=== PATIENT | male | born 1990 | race African-American/Black ===

== ENCOUNTER 2019-11-28 06:22 | Emergency (ER) | payer MEDICAID ==
[~2019-11-28] VITALS: Ht 165.1 cm; Wt 57.0 kg
[2019-11-28] MEDS: MAGNESIUM/ALUMINUM HYDROXIDE/SIMETHICONE 30ML UDC PO STA (07:00)
[2019-11-28] MEDS: VISCOUS LIDOCAINE 2% 15 ML UDC PO STA (07:00)
[2019-11-28] MEDS: DICYCLOMINE 10 MG/5 ML ORAL SYR PO STA (07:00)
[2019-11-28] MEDS: ACETAMINOPHEN 325MG TABLET PO STA (07:00)
[2019-11-28] MEDS: KETOROLAC 60MG/2ML VIAL IM ONE (07:40)
[2019-11-28 07:41] VITALS: BP 122/89
== END 2019-11-28 07:42 | disposition home or self-care (01) ==
LOC: ER 06:22
DX: M54.2 Cervicalgia (principal); J02.9 Acute pharyngitis, unspecified; R07.89 Other chest pain; K21.9 Gastro-esophageal reflux disease without esophagitis
CPT/HCPCS: 71045; 93005; 96372; 99284; J1885

== ENCOUNTER 2019-12-01 03:14 | Emergency (ER) | payer MEDICAID ==
[~2019-12-01] VITALS: Ht 170.2 cm; Wt 73.0 kg
[2019-12-01] MEDS ORDERED: ACETAMINOPHEN 325MG TABLET PO STA (07:19)
[2019-12-01 08:38] LABS: BASOPHILS % 0.7 % (0.0-2.0); HEMATOCRIT. 49.3 % (42.0-52.0); HEMOGLOBIN. 16.6 g/dL (14.0-18.0); LYMPHOCYTES % 30.2 % (20.0-50.0); MEAN CORPUSCULAR HEMOGLOBIN 29.2 pg (28.0-32.0); MEAN CORPUSCULAR VOLUME 86.6 fL (80.0-94.0); MEAN PLATELET VOLUME 10.5 fl (7.4-10.4); MONOCYTES % 5.4 % (2.0-8.0); NEUTROPHILS % 61.7 % (40.0-76.0); PLATELET 154 x1000/uL (130-400); RED BLOOD CELL COUNT 5.69 mill/uL (4.7-6.1); RED CELL DISTRIBUTION WIDTH 13.6 % (11.6-14.6)
[2019-12-01 08:46] LABS: CHLORIDE 105 mEq/L (98-107)
[2019-12-01 08:48] LABS: INR 1.1; PROTHROMBIN TIME 11.5 sec (9.6-11.0)
[2019-12-01] MEDS ORDERED: IOHEXOL-300 100 ML BOTTLE ONE (09:30)
[2019-12-01] MEDS ORDERED: KETOROLAC 60MG/2ML VIAL IM ONE (10:00)
[2019-12-01 10:41] VITALS: BP 115/68
== END 2019-12-01 10:41 | disposition home or self-care (01) ==
LOC: ER 03:14
DX: J03.90 Acute tonsillitis, unspecified (principal)
CPT/HCPCS: 36415; 70491; 80053; 83605; 85025; 85610; 87040; 96372; 99284; J1885; Q9967

== ENCOUNTER 2019-12-03 14:01 | Emergency (ER) | payer MEDICAID ==
[~2019-12-03] VITALS: Ht 175.3 cm; Wt 69.0 kg
[2019-12-03] MEDS ORDERED: MAGNESIUM/ALUMINUM HYDROXIDE/SIMETHICONE 30ML UDC PO ONE (15:30)
[2019-12-03] MEDS ORDERED: IBUPROFEN 400MG TABLET PO ONE (15:30)
[2019-12-03 16:26] LABS: BASOPHILS % 0.7 % (0.0-2.0); EOSINOPHILS % 0.3 % (0.0-5.0); HEMATOCRIT. 48.1 % (42.0-52.0); HEMOGLOBIN. 16.3 g/dL (14.0-18.0); LYMPHOCYTES % 17.5 % (20.0-50.0); MEAN CORPUSCULAR HEMOGLOBIN 28.9 pg (28.0-32.0); MEAN CORPUSCULAR VOLUME 85.2 fL (80.0-94.0); MEAN PLATELET VOLUME 10.4 fl (7.4-10.4); MONOCYTES % 5.6 % (2.0-8.0); NEUTROPHILS % 75.9 % (40.0-76.0); PLATELET 163 x1000/uL (130-400); RED BLOOD CELL COUNT 5.65 mill/uL (4.7-6.1); RED CELL DISTRIBUTION WIDTH 13.1 % (11.6-14.6)
[2019-12-03 16:37] LABS: CHLORIDE 106 mEq/L (98-107)
[2019-12-03 17:00] VITALS: BP 110/72
== END 2019-12-03 17:24 | disposition home or self-care (01) ==
LOC: ER 14:01
DX: J02.9 Acute pharyngitis, unspecified (principal); M54.2 Cervicalgia
CPT/HCPCS: 36415; 80053; 84443; 85025; 87070; 87430; 93005; 99284